=== PATIENT | male | born 2000 | race Caucasian/White ===

== ENCOUNTER 2024-09-24 16:05 | Emergency (ER) | payer OTHER, MEDICAID ==
[~2024-09-24] VITALS: Ht 165.1 cm; Wt 128.4 kg
[2024-09-24 16:13] VITALS: BP 162/72; PULSE 97; RESP 16; TEMP 98.3; O2SAT 97
[2024-09-24] MEDS: ipratropium/albuterol 3ml nebule NEB STA (17:42)
[2024-09-24] MEDS: dexamethasone sod phosphate 10mg/ml inj PO STA (17:43)
== END 2024-09-24 18:50 | disposition home or self-care (01) ==
LOC: ER 16:06
DX: M25.562 Pain in left knee (principal)
CPT/HCPCS: 73564; 99283